=== PATIENT | female | born 1940 | race Two or more races ===

== ENCOUNTER 2017-05-15 12:46 | Emergency (ER) | payer MEDICARE, OTHER ==
[~2017-05-15] VITALS: Ht 149.9 cm; Wt 69.0 kg
[2017-05-15] MEDS ORDERED: IRBE75TA10 PO (13:09)
[2017-05-15] MEDS ORDERED: FURO-93 PO (13:10)
[2017-05-15] MEDS ORDERED: CARV3.122 PO (13:10)
[2017-05-15] MEDS ORDERED: SIMV5TAB5 PO (13:10)
[2017-05-15] MEDS ORDERED: CALC-451 PO (13:11)
[2017-05-15] MEDS ORDERED: METF500T4 PO (13:11)
[2017-05-15] MEDS ORDERED: LOSA1TAB25 PO (13:12)
[2017-05-15] MEDS ORDERED: DIGO125T PO (13:13)
[2017-05-15] MEDS ORDERED: METF750T2 PO (13:14)
[2017-05-15] MEDS ORDERED: ATEN50TA41 PO (13:15)
[2017-05-15] MEDS ORDERED: RIVA20TA PO (13:15)
[2017-05-15] MEDS ORDERED: ATEN25TA PO (13:15)
[2017-05-15] MEDS ORDERED: ALBUTEROL/IPRATROPIUM 2.5MG/0.5MG, 3 ML ONE (13:27)
[2017-05-15] MEDS ORDERED: ALBUTEROL/IPRATROPIUM 2.5MG/0.5MG, 3 ML NEB ONE (13:30)
[2017-05-15 13:34] LABS: HEMATOCRIT 31.2 % (34.6-47.8); HEMOGLOBIN 10.4 g/dL (11.7-16.4)
[2017-05-15 13:44] LABS: BLOOD UREA NITROGEN 14 mg/dL (7-18)
[2017-05-15 14:57] VITALS: BP 134/56
== END 2017-05-15 14:59 | disposition home or self-care (01) ==
LOC: ED 14:52
DX: J20.9 Acute bronchitis, unspecified (principal); J45.901 Unspecified asthma with (acute) exacerbation
CPT/HCPCS: 36415; 71020; 80048; 82040; 85025; 93005; 94640; 99285; J7512; J7620

== ENCOUNTER 2017-05-19 13:28 | Inpatient (IN) | payer OTHER ==
[~2017-05-19] VITALS: Ht 149.9 cm; Wt 60.1 kg
[~2017-05-19 13:28] MED LIST: ATEN25TA PO; ATEN50TA41 PO; CALC-451 PO; CARV3.122 PO; DIGO125T PO; FURO-93 PO; IRBE75TA10 PO; LOSA1TAB25 PO; METF500T4 PO; METF750T2 PO; RIVA20TA PO; SIMV5TAB5 PO
[2017-05-19] MEDS ORDERED: AZITHROMYCIN 500 MG in SODIUM CHLORIDE 0.9% 250 ML IVPB ONE (13:30)
[2017-05-19] MEDS ORDERED: SODIUM CHLORIDE FLUSH 10ML SYR IVF ONE (13:30)
[2017-05-19] MEDS ORDERED: methylPREDNISolone SOD SUCC 125 MG/2 ML IVP ONE (13:30)
[2017-05-19] MEDS ORDERED: LATA2.5D3 EACHEYE (13:59)
[2017-05-19] MEDS ORDERED: CYCL-259 PO (13:59)
[2017-05-19] MEDS ORDERED: CYAN10005 PO (13:59)
[2017-05-19] MEDS ORDERED: PLEASE ENTER HEIGHT AND WEIGHT MC SCH (14:00)
[2017-05-19 14:01] LABS: HEMATOCRIT 35.5 % (34.6-47.8); HEMOGLOBIN 11.6 g/dL (11.7-16.4); WHITE BLOOD COUNT 16.2 x10^3/uL (3.4-10)
[2017-05-19 14:11] LABS: BLOOD UREA NITROGEN 32 mg/dL (7-18)
[2017-05-19] MEDS ORDERED: SODIUM CHLORIDE 0.9% 1,000 ML IV ONE (14:14)
[2017-05-19] MEDS ORDERED: CEFTRIAXONE PMX 1GM/50ML 50 ML ONE (14:19)
[2017-05-19] MEDS ORDERED: methylPREDNISolone SOD SUCC 125 MG/2 ML ONE (14:30)
[2017-05-19] MEDS ORDERED: CEFTRIAXONE PMX 1GM/50ML 50 ML IV ONE (14:30)
[2017-05-19] MEDS: methylPREDNISolone SOD SUCC 125 MG/2 ML IVPush SCH ×2 (14:45→19:53)
[2017-05-19] MEDS ORDERED: HYDROcodone/APAP 5/325 TABLET PO PRN (15:00)
[2017-05-19] MEDS ORDERED: LABETALOL 5MG/ML, 20ML IVPush PRN ×2 (15:00→20:30)
[2017-05-19] MEDS ORDERED: PHARMACY MAY ADJ FOR RENAL FX MC PRN ×2 (15:00→20:30)
[2017-05-19] MEDS ORDERED: ONDANSETRON 2MG/ML, 2ML IVPush PRN ×2 (15:00→20:30)
[2017-05-19] MEDS ORDERED: ENOXAPARIN 40 MG/0.4 ML SQ SCH ×2 (15:00→16:00)
[2017-05-19] MEDS ORDERED: ONDANSETRON ODT 4 MG PO PRN (15:00)
[2017-05-19] MEDS ORDERED: POLYETHYLENE GLYCOL 17 GM PACKET PO PRN (15:00)
[2017-05-19] MEDS ORDERED: morphine SULFATE 10 MG/ML, 1ML IVPush PRN ×2 (15:00→20:30)
[2017-05-19] MEDS ORDERED: FUROSEMIDE 40 MG/4 ML IV ONE ×2 (15:30→16:00)
[2017-05-19 15:40] VITALS: BP 164/79
[2017-05-19] MEDS: CALCIUM/VITAMIN D3 250-125 TABLET PO SCH (15:54)
[2017-05-19] MEDS: CYCLOBENZAPRINE 10 MG TABLET PO SCH ×2 (15:54→19:54)
[2017-05-19 16:12] LABS: ABG COLLECTION SITE RIGHT RADIAL; COLLATERAL CIRCULATION TESTING NORMAL
[2017-05-19 16:16] LABS: IS PT STATUS REG ER OR PRE ER? NO
[2017-05-19 16:47] LABS: PATH.CAST-FLAG NOT PRESENT; SPERM-FLAG NOT PRESENT; SRC-FLAG NOT PRESENT; XTAL-FLAG NOT PRESENT; YLC-FLAG NOT PRESENT
[2017-05-19] MEDS: POTASSIUM CHLORIDE 20 MEQ TAB.ER.PRT PO SCH (17:33)
[2017-05-19] MEDS: METOPROLOL TARTRATE 25 MG TABLET PO SCH (17:33)
[2017-05-19] MEDS: ENOXAPARIN 30 MG/0.3 ML SQ SCH (17:33)
[2017-05-19] MEDS: CEFTRIAXONE PMX 1GM/50ML 50 ML IV SCH (17:33)
[2017-05-19] MEDS ORDERED: IRBE150T25 PO (17:48)
[2017-05-19] MEDS ORDERED: SIMV20TA3 PO (17:48)
[2017-05-19] MEDS ORDERED: METF850T2 PO (17:48)
[2017-05-19] MEDS ORDERED: CYCL5TAB PO (17:48)
[2017-05-19 19:10] VITALS: BP 124/59
[2017-05-19 19:15] VITALS: BP 104/66
[2017-05-19] MEDS: SIMVASTATIN 20 MG TABLET PO SCH (19:54)
[2017-05-19] MEDS: DOXYCYCLINE 100MG TABLET PO SCH (19:54)
[2017-05-19] MEDS ORDERED: FUROSEMIDE 40 MG/4 ML IV SCH (21:00)
[2017-05-19] MEDS: LATANOPROST OPHTH 0.005%, 2.5ML EACHEYE SCH (21:00)
[2017-05-19 22:03] LABS: IS PT STATUS REG ER OR PRE ER? NO
[2017-05-20 01:44] VITALS: BP 130/83
[2017-05-20] MEDS: methylPREDNISolone SOD SUCC 125 MG/2 ML IVPush SCH (03:28)
[2017-05-20 05:27] LABS: IS PT STATUS REG ER OR PRE ER? NO
[2017-05-20] MEDS: METOPROLOL TARTRATE 25 MG TABLET PO SCH ×3 (05:38→18:20)
[2017-05-20 07:51] LABS: HEMOGLOBIN 13.1 g/dL (11.7-16.4); WHITE BLOOD COUNT 16.5 x10^3/uL (3.4-10)
[2017-05-20 07:53] LABS: BLOOD UREA NITROGEN 35 mg/dL (7-18)
[2017-05-20 07:58] LABS: IS PT STATUS REG ER OR PRE ER? NO
[2017-05-20 08:31] VITALS: BP 118/65
[2017-05-20] MEDS: CLOPIDOGREL 75 MG TABLET PO SCH (09:00)
[2017-05-20] MEDS ORDERED: CYANOCOBALAMIN 1,000 MCG TABLET PO SCH (09:00)
[2017-05-20] MEDS ORDERED: ATENOLOL 25 MG TABLET PO SCH (09:00)
[2017-05-20] MEDS ORDERED: CLOPIDOGREL 75 MG TABLET PO SCH (09:00)
[2017-05-20] MEDS ORDERED: SENNA/DOCUSATE TABLET PO SCH ×2 (09:00)
[2017-05-20 09:08] LABS: RAPID INFLUENZA A POSITIVE (Negative); RAPID INFLUENZA B Negative (Negative)
[2017-05-20] MEDS ORDERED: REGADENOSON 0.4 MG/5 ML SYRINGE ONE (09:16)
[2017-05-20] MEDS: predniSONE 50MG TABLET PO SCH (09:30)
[2017-05-20] MEDS ORDERED: CYCLOBENZAPRINE 10 MG TABLET PO PRN (10:00)
[2017-05-20] MEDS: DOXYCYCLINE 100MG TABLET PO SCH ×2 (11:05→20:40)
[2017-05-20] MEDS: CYANOCOBALAMIN 1,000 MCG TABLET PO SCH (11:05)
[2017-05-20] MEDS: POTASSIUM CHLORIDE 20 MEQ TAB.ER.PRT PO SCH ×2 (11:06→17:48)
[2017-05-20] MEDS: CYCLOBENZAPRINE 10 MG TABLET PO SCH ×3 (11:07→20:40)
[2017-05-20] MEDS: CALCIUM/VITAMIN D3 250-125 TABLET PO SCH (11:07)
[2017-05-20] MEDS: OSELTAMIVIR 75 MG CAPSULE PO SCH ×2 (11:25→20:40)
[2017-05-20 15:38] VITALS: BP 113/70
[2017-05-20 16:42] VITALS: BP 145/97
[2017-05-20] MEDS: CEFTRIAXONE PMX 1GM/50ML 50 ML IV SCH (17:41)
[2017-05-20] MEDS: ENOXAPARIN 30 MG/0.3 ML SQ SCH (17:42)
[2017-05-20 18:19] VITALS: BP 103/50
[2017-05-20 20:14] VITALS: BP 109/54
[2017-05-20] MEDS: LATANOPROST OPHTH 0.005%, 2.5ML EACHEYE SCH (20:40)
[2017-05-20] MEDS: SIMVASTATIN 20 MG TABLET PO SCH (20:41)
[2017-05-21 01:08] VITALS: BP 109/71
[2017-05-21] MEDS: METOPROLOL TARTRATE 25 MG TABLET PO SCH ×2 (05:24→17:57)
[2017-05-21 05:50] LABS: HEMATOCRIT 36.7 % (34.6-47.8); HEMOGLOBIN 12.1 g/dL (11.7-16.4); WHITE BLOOD COUNT 12.6 x10^3/uL (3.4-10)
[2017-05-21 06:02] LABS: ASPARTATE AMINO TRANSFERASE 11 U/L (15-37); BLOOD UREA NITROGEN 56 mg/dL (7-18)
[2017-05-21 08:50] VITALS: BP 109/52
[2017-05-21] MEDS ORDERED: FUROSEMIDE 40 MG/4 ML IV SCH (09:00)
[2017-05-21] MEDS: CALCIUM/VITAMIN D3 250-125 TABLET PO SCH (09:02)
[2017-05-21] MEDS: SENNA/DOCUSATE TABLET PO SCH (09:02)
[2017-05-21] MEDS: DOXYCYCLINE 100MG TABLET PO SCH ×2 (09:02→22:07)
[2017-05-21] MEDS: POTASSIUM CHLORIDE 20 MEQ TAB.ER.PRT PO SCH ×2 (09:02→17:56)
[2017-05-21] MEDS: OSELTAMIVIR 75 MG CAPSULE PO SCH ×2 (09:02→22:06)
[2017-05-21] MEDS: predniSONE 50MG TABLET PO SCH (09:02)
[2017-05-21] MEDS: CYANOCOBALAMIN 1,000 MCG TABLET PO SCH (09:02)
[2017-05-21] MEDS: CLOPIDOGREL 75 MG TABLET PO SCH (09:02)
[2017-05-21] MEDS: CYCLOBENZAPRINE 10 MG TABLET PO SCH ×3 (09:03→22:06)
[2017-05-21] MEDS ORDERED: ALBUTEROL/IPRATROPIUM 2.5MG/0.5MG, 3 ML ONE (13:56)
[2017-05-21] MEDS: ALBUTEROL/IPRATROPIUM 2.5MG/0.5MG, 3 ML NPPB PRN ×2 (14:44→20:28)
[2017-05-21 15:30] VITALS: BP 112/46
[2017-05-21 17:45] VITALS: BP 139/56
[2017-05-21] MEDS: CEFTRIAXONE PMX 1GM/50ML 50 ML IV SCH (17:56)
[2017-05-21] MEDS: ENOXAPARIN 30 MG/0.3 ML SQ SCH (17:57)
[2017-05-21 19:18] VITALS: BP 133/53
[2017-05-21] MEDS: INSULIN ASPART 100 UNITS/ML, PEN SQ-INSULIN SCH (22:07)
[2017-05-21] MEDS: SIMVASTATIN 20 MG TABLET PO SCH (22:07)
[2017-05-21] MEDS: LATANOPROST OPHTH 0.005%, 2.5ML EACHEYE SCH (22:10)
[2017-05-22 02:00] VITALS: BP 115/55
[2017-05-22 06:04] LABS: HEMATOCRIT 35.4 % (34.6-47.8); HEMOGLOBIN 11.7 g/dL (11.7-16.4); WHITE BLOOD COUNT 10.6 x10^3/uL (3.4-10)
[2017-05-22] MEDS: METOPROLOL TARTRATE 25 MG TABLET PO SCH ×2 (06:04→18:00)
[2017-05-22 06:10] LABS: BLOOD UREA NITROGEN 54 mg/dL (7-18)
[2017-05-22 06:15] LABS: ASPARTATE AMINO TRANSFERASE 15 U/L (15-37)
[2017-05-22] MEDS: INSULIN ASPART 100 UNITS/ML, PEN SQ-INSULIN SCH ×4 (07:00→22:02)
[2017-05-22 07:42] LABS: IS PT STATUS REG ER OR PRE ER? NO
[2017-05-22 08:25] VITALS: BP 100/50
[2017-05-22] MEDS: CLOPIDOGREL 75 MG TABLET PO SCH (08:45)
[2017-05-22] MEDS: CALCIUM/VITAMIN D3 250-125 TABLET PO SCH (08:45)
[2017-05-22] MEDS: DOXYCYCLINE 100MG TABLET PO SCH ×2 (08:45→22:01)
[2017-05-22] MEDS: predniSONE 50MG TABLET PO SCH (08:45)
[2017-05-22] MEDS: OSELTAMIVIR 75 MG CAPSULE PO SCH ×2 (08:45→22:01)
[2017-05-22] MEDS: CYCLOBENZAPRINE 10 MG TABLET PO SCH ×3 (08:45→22:01)
[2017-05-22] MEDS: CYANOCOBALAMIN 1,000 MCG TABLET PO SCH (08:45)
[2017-05-22] MEDS: POTASSIUM CHLORIDE 20 MEQ TAB.ER.PRT PO SCH ×2 (08:45→17:14)
[2017-05-22] MEDS: SENNA/DOCUSATE TABLET PO SCH (08:45)
[2017-05-22 16:04] VITALS: BP 127/48
[2017-05-22] MEDS: CEFTRIAXONE PMX 1GM/50ML 50 ML IV SCH (17:14)
[2017-05-22] MEDS: ENOXAPARIN 30 MG/0.3 ML SQ SCH (17:33)
[2017-05-22 20:00] VITALS: BP 116/62
[2017-05-22] MEDS: ALBUTEROL/IPRATROPIUM 2.5MG/0.5MG, 3 ML NPPB PRN (20:40)
[2017-05-22] MEDS: SIMVASTATIN 20 MG TABLET PO SCH (22:01)
[2017-05-22] MEDS: LATANOPROST OPHTH 0.005%, 2.5ML EACHEYE SCH (22:01)
[2017-05-23 02:00] VITALS: BP 129/62
[2017-05-23 05:11] LABS: HEMATOCRIT 39.4 % (34.6-47.8); HEMOGLOBIN 12.9 g/dL (11.7-16.4); WHITE BLOOD COUNT 9.9 x10^3/uL (3.4-10)
[2017-05-23 05:22] LABS: ASPARTATE AMINO TRANSFERASE 15 U/L (15-37); BLOOD UREA NITROGEN 51 mg/dL (7-18)
[2017-05-23] MEDS: METOPROLOL TARTRATE 25 MG TABLET PO SCH ×2 (05:51→17:07)
[2017-05-23] MEDS: ALBUTEROL/IPRATROPIUM 2.5MG/0.5MG, 3 ML NPPB PRN ×2 (06:20→21:29)
[2017-05-23] MEDS: INSULIN ASPART 100 UNITS/ML, PEN SQ-INSULIN SCH ×4 (07:00→20:57)
[2017-05-23 07:49] VITALS: BP 132/53
[2017-05-23] MEDS: CYCLOBENZAPRINE 10 MG TABLET PO SCH (09:17)
[2017-05-23] MEDS: OSELTAMIVIR 75 MG CAPSULE PO SCH ×2 (09:17→20:28)
[2017-05-23] MEDS: predniSONE 50MG TABLET PO SCH (09:17)
[2017-05-23] MEDS: DOXYCYCLINE 100MG TABLET PO SCH ×2 (09:17→20:28)
[2017-05-23] MEDS: CYANOCOBALAMIN 1,000 MCG TABLET PO SCH (09:17)
[2017-05-23] MEDS: CLOPIDOGREL 75 MG TABLET PO SCH (09:18)
[2017-05-23] MEDS: SENNA/DOCUSATE TABLET PO SCH (09:18)
[2017-05-23] MEDS: CALCIUM/VITAMIN D3 250-125 TABLET PO SCH (09:18)
[2017-05-23] MEDS: POTASSIUM CHLORIDE 20 MEQ TAB.ER.PRT PO SCH (09:18)
[2017-05-23] MEDS ORDERED: PHARMACY MAY ADJ FOR RENAL FX MC PRN (11:00)
[2017-05-23] MEDS ORDERED: SODIUM CHLORIDE 0.9%, 500ML IVBOLUS ONE (11:00)
[2017-05-23 13:46] VITALS: BP 127/54
[2017-05-23] MEDS: RIVAROXABAN 15 MG TABLET PO SCH (17:00)
[2017-05-23] MEDS: CEFTRIAXONE PMX 1GM/50ML 50 ML IV SCH (17:07)
[2017-05-23 20:00] VITALS: BP 128/57
[2017-05-23] MEDS: LATANOPROST OPHTH 0.005%, 2.5ML EACHEYE SCH (20:28)
[2017-05-23] MEDS: SIMVASTATIN 20 MG TABLET PO SCH (20:28)
[2017-05-24 02:00] VITALS: BP 116/63
[2017-05-24] MEDS: ALBUTEROL/IPRATROPIUM 2.5MG/0.5MG, 3 ML NPPB PRN ×2 (04:23→23:10)
[2017-05-24 05:47] LABS: HEMATOCRIT 37.2 % (34.6-47.8); HEMOGLOBIN 12.3 g/dL (11.7-16.4); WHITE BLOOD COUNT 8.7 x10^3/uL (3.4-10)
[2017-05-24 05:55] LABS: BLOOD UREA NITROGEN 40 mg/dL (7-18)
[2017-05-24] MEDS: METOPROLOL TARTRATE 25 MG TABLET PO SCH ×2 (05:59→17:13)
[2017-05-24 06:53] VITALS: BP 103/63
[2017-05-24] MEDS: INSULIN ASPART 100 UNITS/ML, PEN SQ-INSULIN SCH ×4 (07:00→21:56)
[2017-05-24] MEDS ORDERED: predniSONE 50MG TABLET PO SCH (08:00)
[2017-05-24] MEDS: CALCIUM/VITAMIN D3 250-125 TABLET PO SCH (08:12)
[2017-05-24] MEDS: SENNA/DOCUSATE TABLET PO SCH (08:12)
[2017-05-24] MEDS: CLOPIDOGREL 75 MG TABLET PO SCH (08:12)
[2017-05-24] MEDS: OSELTAMIVIR 75 MG CAPSULE PO SCH ×2 (08:12→21:56)
[2017-05-24] MEDS: CYANOCOBALAMIN 1,000 MCG TABLET PO SCH (08:12)
[2017-05-24] MEDS: DOXYCYCLINE 100MG TABLET PO SCH ×2 (08:12→21:56)
[2017-05-24] MEDS ORDERED: REGADENOSON 0.4 MG/5 ML SYRINGE ONE (08:23)
[2017-05-24 14:50] VITALS: BP 111/67
[2017-05-24] MEDS: CEFTRIAXONE PMX 1GM/50ML 50 ML IV SCH (17:13)
[2017-05-24] MEDS: RIVAROXABAN 15 MG TABLET PO SCH (17:13)
[2017-05-24 20:00] VITALS: BP 109/63
[2017-05-24] MEDS: SIMVASTATIN 20 MG TABLET PO SCH (21:56)
[2017-05-24] MEDS: LATANOPROST OPHTH 0.005%, 2.5ML EACHEYE SCH (21:56)
[2017-05-25 00:51] VITALS: BP 105/67
[2017-05-25 06:01] LABS: BLOOD UREA NITROGEN 48 mg/dL (7-18)
[2017-05-25 06:03] LABS: HEMATOCRIT 35.4 % (34.6-47.8); HEMOGLOBIN 11.6 g/dL (11.7-16.4); WHITE BLOOD COUNT 10.9 x10^3/uL (3.4-10)
[2017-05-25] MEDS: METOPROLOL TARTRATE 25 MG TABLET PO SCH ×2 (06:11→17:22)
[2017-05-25] MEDS: INSULIN ASPART 100 UNITS/ML, PEN SQ-INSULIN SCH ×4 (07:00→20:39)
[2017-05-25 08:30] VITALS: BP 106/56
[2017-05-25] MEDS: SENNA/DOCUSATE TABLET PO SCH (09:00)
[2017-05-25] MEDS: CYANOCOBALAMIN 1,000 MCG TABLET PO SCH (09:34)
[2017-05-25] MEDS: OSELTAMIVIR 75 MG CAPSULE PO SCH (09:34)
[2017-05-25] MEDS: CALCIUM/VITAMIN D3 250-125 TABLET PO SCH (09:34)
[2017-05-25] MEDS: CLOPIDOGREL 75 MG TABLET PO SCH (09:34)
[2017-05-25] MEDS: DOXYCYCLINE 100MG TABLET PO SCH ×2 (09:34→20:38)
[2017-05-25 12:15] VITALS: BP 120/51
[2017-05-25] MEDS: ALBUTEROL/IPRATROPIUM 2.5MG/0.5MG, 3 ML NPPB PRN ×2 (15:19→23:40)
[2017-05-25] MEDS: RIVAROXABAN 15 MG TABLET PO SCH (17:22)
[2017-05-25] MEDS: CEFTRIAXONE PMX 1GM/50ML 50 ML IV SCH (17:22)
[2017-05-25 18:33] VITALS: BP 126/53
[2017-05-25] MEDS: SIMVASTATIN 20 MG TABLET PO SCH (20:38)
[2017-05-25] MEDS: LATANOPROST OPHTH 0.005%, 2.5ML EACHEYE SCH (20:38)
[2017-05-26 02:03] VITALS: BP 106/51
[2017-05-26 04:56] LABS: HEMATOCRIT 35.9 % (34.6-47.8); HEMOGLOBIN 11.8 g/dL (11.7-16.4); WHITE BLOOD COUNT 12.9 x10^3/uL (3.4-10)
[2017-05-26 05:08] LABS: BLOOD UREA NITROGEN 43 mg/dL (7-18)
[2017-05-26] MEDS: METOPROLOL TARTRATE 25 MG TABLET PO SCH (05:47)
[2017-05-26] MEDS: INSULIN ASPART 100 UNITS/ML, PEN SQ-INSULIN SCH ×3 (07:00→16:00)
[2017-05-26 07:34] VITALS: BP 119/66
[2017-05-26] MEDS: DOXYCYCLINE 100MG TABLET PO SCH (08:26)
[2017-05-26] MEDS: SENNA/DOCUSATE TABLET PO SCH (08:26)
[2017-05-26] MEDS: CLOPIDOGREL 75 MG TABLET PO SCH (08:27)
[2017-05-26] MEDS: CALCIUM/VITAMIN D3 250-125 TABLET PO SCH (08:27)
[2017-05-26] MEDS: CYANOCOBALAMIN 1,000 MCG TABLET PO SCH (08:27)
[2017-05-26] MEDS ORDERED: DOXY100T PO (12:09)
[2017-05-26] MEDS ORDERED: CEFD300C37 PO (12:09)
[2017-05-26] MEDS ORDERED: PRED20TA PO (12:09)
[2017-05-26] MEDS ORDERED: RIVA15TA PO (12:09)
[2017-05-26 14:30] VITALS: BP 122/68
[2017-05-26] MEDS: RIVAROXABAN 15 MG TABLET PO SCH (17:00)
[2017-05-26] MEDS ORDERED: METO25TA35 PO (17:28)
== END 2017-05-26 17:53 | DRG 193 ==
LOC: ED 14:42 → EDIP 14:50 → 4WST 15:24
PROVIDERS: ADMIT Internal Medicine; ATTEND Internal Medicine
DX: J11.00 Influenza due to unidentified influenza virus with unspecified type of pneumonia (principal); J96.01 Acute respiratory failure with hypoxia; N17.0 Acute kidney failure with tubular necrosis; I11.0 Hypertensive heart disease with heart failure; D68.69 Other thrombophilia; I50.9 Heart failure, unspecified; D64.9 Anemia, unspecified; E11.9 Type 2 diabetes mellitus without complications; J44.0 Chronic obstructive pulmonary disease with (acute) lower respiratory infection; I48.91 Unspecified atrial fibrillation; E78.5 Hyperlipidemia, unspecified; I09.9 Rheumatic heart disease, unspecified; Z79.01 Long term (current) use of anticoagulants; Z79.899 Other long term (current) drug therapy; Z83.3 Family history of diabetes mellitus; Z86.73 Personal history of transient ischemic attack (TIA), and cerebral infarction without residual deficits
CPT/HCPCS: 36415; 36600; 71010; 71020; 78452; 80048; 80053; 80162; 81001; 82040; 82803; 82962; 83036; 83605; 83735; 83880; 84145; 84484; 85025; 85379; 85610; 87040; 87070; 87086; 87205; 87400; 93005; 93017; 93306; 94640; 99291; J0456; J0696; J1650; J1815; J1940; J2785; J7620; A9502; C9898; J2930; J7030; J7040; J7050; J7512

== ENCOUNTER 2017-06-05 12:15 | Emergency (ER) | payer OTHER ==
[~2017-06-05] VITALS: Ht 149.9 cm; Wt 65.0 kg
[~2017-06-05 12:15] MED LIST changes: +CEFD300C37 PO; +CYAN10005 PO; +CYCL-259 PO; +CYCL5TAB PO; +DOXY100T PO; +IRBE150T25 PO; +LATA2.5D3 EACHEYE; +METF850T2 PO; +METO25TA35 PO; +PRED20TA PO; +RIVA15TA PO; +SIMV20TA3 PO
[2017-06-05] MEDS ORDERED: ACETAMINOPHEN 500 MG TABLET PO ONE (12:30)
[2017-06-05] MEDS ORDERED: ACETAMINOPHEN 500 MG TABLET ONE (12:30)
[2017-06-05] MEDS ORDERED: ACETAMINOPHEN 325 MG TABLET PO ONE (12:30)
[2017-06-05 13:35] VITALS: BP 116/50
== END 2017-06-05 13:36 | disposition home or self-care (01) ==
LOC: ED 12:23
DX: S09.90XA Unspecified injury of head, initial encounter (principal); I10 Essential (primary) hypertension; E11.9 Type 2 diabetes mellitus without complications; I48.91 Unspecified atrial fibrillation; Z88.0 Allergy status to penicillin; W19.XXXA Unspecified fall, initial encounter; Y93.89 Activity, other specified; Y92.239 Unspecified place in hospital as the place of occurrence of the external cause; Y99.8 Other external cause status
CPT/HCPCS: 70450; 72125; 99284